=== PATIENT | male | born 1985 | race Hispanic/Latino ===

== ENCOUNTER 2019-10-03 18:30 | Inpatient (IN) | payer SELFPAY ==
[~2019-10-03 18:30] MED LIST: Iopamidol-370 76% 500 ML 1 ML ONE
[2019-10-03 19:02] LABS: Hemoglobin 15.9 g/dL (14.0-18.0); Mean Corpuscular HGB CONC 35.4 g/dL (32.0-36.0); Mean Corpuscular Hemoglobin 31.9 pg (27.0-31.0); Mean Platelet Volume 6.7 fL (7.4-10.4); Platelet Count 195 thou/uL (130-400); RBC Distribution Width 12.7 % (11.5-14.5); Red Blood Cell (RBC) Count 4.98 mill/uL (4.70-6.10); White Blood Cell (WBC) Count 16.1 thou/uL (4.8-10.8)
[2019-10-03] MEDS ORDERED: Piperacillin/Tazobactam 4.5 GM VIAL ONE (19:13)
[2019-10-03] MEDS ORDERED: Morphine 4 MG/ML VIAL ONE (19:13)
[2019-10-03] MEDS ORDERED: Sodium Chloride 0.9% 100 ML ONE (19:13)
[2019-10-03] MEDS ORDERED: Ondansetron PF 4 MG/2 ML Vial ONE (19:13)
[2019-10-03 19:25] LABS: Band 11 % (5-11); Lymphocytes 8 % (21-51); MDiff Complete? YES; Monocytes 4 % (0-10); Neutrophil 73 % (42-75); Platelet Morphology Comment Appears Adequate; Polychromasia SLIGHT = 2-3 cells (100X) (0-2/hpf); Reactive Lymphocytes 3 % (0-10); Tear Drops SLIGHT = 2-5 cells (100X) (0-1/hpf)
[2019-10-03 20:11] LABS: Albumin 3.6 g/dL (3.5-5.0)
[2019-10-03 20:12] LABS: Chloride 107 mmol/L (98-107); Sodium 134 mmol/L (136-145)
[2019-10-03 20:13] LABS: Calcium 7.7 mg/dL (7.8-10.44); Glucose 115 mg/dL (70-105)
[2019-10-03 20:14] LABS: Globulin 2.4 g/dL (2.4-3.5)
[2019-10-03 20:15] LABS: Anion Gap 11 mmol/L (10-20); Bilirubin, Total 0.8 mg/dL (0.2-1.2); Carbon Dioxide 19 mmol/L (22-29)
[2019-10-03 20:16] LABS: Alkaline Phosphatase 48 U/L (40-110)
[2019-10-03 20:17] LABS: Calc. Creatinine Clearance 0 mL/min (70-130); Estimated GFR-MDRD Greater than 90
[2019-10-03 20:18] LABS: AST (SGOT) 22 U/L (5-34); BUN (Urea Nitrogen) 9 mg/dL (8.9-20.6)
[2019-10-03] MEDS ORDERED: Clindamycin/D5W 900 mg/50 ml Premix Bag ONE (20:18)
[2019-10-03 20:19] LABS: ALT (SGPT) 37 U/L (8-55); CK (CPK) 86 U/L (30-200)
--- NOTE | 2019-10-03 20:24 | CT ---
CT SCAN OF THE RIGHT LOWER EXTREMITY WITH IV CONTRAST: 10/03/19 HISTORY: Right lower leg swelling, redness, pain. Concern for necrotizing fasciitis. FINDINGS: There is soft tissue edema in the medial aspect of the right lower leg extending into the ankle. No d efinite abnormally loculated fluid collection is seen to suggest abscess formation. The bony structur es are intact. No soft tissue air is seen. IMPRESSION: Findings are consistent with right leg cellulitis. No evidence of osteomyelitis or definite abscess formation. POS: FESTUS
[2019-10-03] MEDS ORDERED: Senokot S 8.6-50 MG TAB PO PRN (22:07)
[2019-10-03] MEDS ORDERED: Acetaminophen 325 MG TAB PO PRN (22:07)
[2019-10-03 23:42] VITALS: BMI 33.7
[2019-10-04] MEDS ORDERED: Potassium Chloride 20 MEQ TAB PO SCH (00:45)
--- NOTE | 2019-10-04 01:31 | HP ---
PRIMARY CARE PHYSICIAN: None. CHIEF COMPLAINT: Right leg pain. HISTORY OF PRESENT ILLNESS: Mr. Estrada is a 34-year-old man who reported to the emergency room today after complaining of right lower leg pain, swelling, and redness x1 day. Reports that he noticed a little red spot yesterday. Reports that he got out of [facility] yesterday. Reports that he had cellulitis in the same leg in the same area several weeks ago, was given antibiotics in [facility]. He said he had several doses of IV antibiotics and then p.o. He finished that course and symptoms resolved. He reports he was sitting cross-legged yesterday, waiting to get discharged from [facility] when he had a pain in his right groin and then reports that he later noticed a little bit a red spot in the same location as he had the previous cellulitis. He does report fever, chills, and body aches. He was found in the emergency room to have a white blood cell count of 16.1; sodium 134, potassium 3.0, carbon dioxide 19, creatinine 0.76, glucose 115, calcium 7.7; lactic acid 1.1; C-reactive protein 22.61. The patient also underwent a CT of the lower extremity, which showed consistent findings with right leg cellulitis. No evidence of osteomyelitis or definite abscess formation. ED was concerned about necrotizing fasciitis, so Dr. Watson of General Surgery was consulted from the emergency room. Reports that he would prefer admission to Medicine and that he would consult. He was given a dose of clindamycin, vancomycin, and Zosyn in the emergency room as well as some morphine and 2 L of normal saline and then admitted to the surgical unit for further management. REVIEW OF SYSTEMS: Reports chills, fever, and body aches. Reports lower right leg swelling, redness, pain, and warmth. All other systems are reviewed and are negative unless mentioned in the HPI. PAST MEDICAL HISTORY: Pertinent for hypertension and exposure to TB, reports that he is on month 8 out of 9 months regimen for exposure to TB. PAST SURGICAL HISTORY: None. PSYCHIATRIC HISTORY: None. SOCIAL HISTORY: He is a former tobacco user. ALLERGIES: NONE. CURRENT MEDICATIONS: Lisinopril 20 mg p.o. once a day, also takes TB prophylaxis regimen and he is reports that he has it at home. He was asked to have someone bring those medication list for us. PHYSICAL EXAMINATION: VITAL SIGNS: Blood pressure 114/81, pulse is 85, respirations 24, pO2 sats are 97% on room air, temp is 99.7. CONSTITUTIONAL: The patient appears nontoxic, is alert and oriented to person, place, and time. HEENT: Head is atraumatic and normocephalic. Eyes; eyelids are normal to inspection. Pupils are equal, round, and reactive to light. ENT; mouth exam is normal. Mucous membranes are moist. NECK: Normal range of motion. Trachea is midline. RESPIRATORY/CHEST: Breath sounds are clear. Chest expansion is equal. CARDIOVASCULAR: Heart rate tachycardic. Heart sounds are normal. ABDOMEN: Nontender. Bowel sounds are heard BACK: Normal range of motion. No tenderness. EXTREMITIES: Upper extremity; normal range of motion. Motor strength is normal. Sensation intact. Radial pulses are normal. Lower extremity; large area of erythema with central 4 x 4 area of purpura. Multiple surrounding petechiae lesions in the anterior right lower leg. Streaking erythema to the medial right lower leg. Motor strength is normal. Sensation intact. Pedal pulses are normal. NEURO: Patient is oriented to person, place, and time. Speech is normal. SKIN: Warm, dry, normal in color other than area as described in the lower extremity. PSYCHIATRIC: He has a normal affect. PLAN AND ASSESSMENT: 1. Right lower leg cellulitis with concern for necrotizing fasciitis. Dr. Watson was consulted from the emergency room. We have added a consult for him on the floor. Antibiotics were started in the emergency room. We have continued the Zosyn and the vancomycin. We will recheck labs in a.m. IV hydration, normal saline at 75 mL per hour, 2 L were given in the emergency room. We will ask PT to evaluate. 2. Hypokalemia, reported potassium chloride 40 x1 today and in a.m. We will recheck his potassium level in the morning. 3. History of hypertension. We will restart the lisinopril. 4. Deep vein thrombosis and gastrointestinal prophylaxis started. 5. Hospital course dependent on clinical findings. Job ID: [id number]
[2019-10-04] MEDS: Sodium Chloride 0.9% 1,000 ML IV SCH ×2 (01:35→17:36)
[2019-10-04] MEDS: Piperacillin/Tazobactam 4.5 GM in Sodium Chloride 0.9% 100 ML IVPB SCH ×3 (01:41→17:31)
[2019-10-04] MEDS: Vancomycin 1.5 GRAM/300 ML BAG 1.5 GM in Premix Bag 1 BAG IVPB SCH ×5 (02:00→18:19)
[2019-10-04 05:39] LABS: #Eosinphils 0.1 thou/uL (0.0-0.7); #Lymphocytes 1.7 thou/uL (1.20-3.40); #Monocytes 1.1 thou/uL (0.11-0.59); #Neutrophils 5.5 thou/uL (1.40-6.50); %Basophils 0.6 % (0.0-1.0); %Eosinophils 1.1 % (0.0-10.0); %Lymphocytes 20.3 % (21.0-51.0); %Monocytes 12.8 % (0.0-10.0); %Neutrophils 65.2 % (42.0-75.0); Hemoglobin 13.7 g/dL (14.0-18.0); Mean Corpuscular Hemoglobin 32.1 pg (27.0-31.0); Mean Corpuscular Volume 91.9 fL (78.0-98.0); Mean Platelet Volume 5.9 fL (7.4-10.4); Platelet Count 155 thou/uL (130-400); RBC Distribution Width 12.8 % (11.5-14.5); Red Blood Cell (RBC) Count 4.28 mill/uL (4.70-6.10); White Blood Cell (WBC) Count 8.5 thou/uL (4.8-10.8)
[2019-10-04 06:06] LABS: ALT (SGPT) 38 U/L (8-55); AST (SGOT) 21 U/L (5-34); Albumin 3.7 g/dL (3.5-5.0); Alkaline Phosphatase 50 U/L (40-110); Anion Gap 10 mmol/L (10-20); BUN (Urea Nitrogen) 10 mg/dL (8.9-20.6); Bilirubin, Total 0.7 mg/dL (0.2-1.2); Calc. Creatinine Clearance 169 mL/min (70-130); Calcium 8.3 mg/dL (7.8-10.44); Carbon Dioxide 26 mmol/L (22-29); Chloride 109 mmol/L (98-107); Estimated GFR-MDRD Greater than 90; Globulin 2.6 g/dL (2.4-3.5); Glucose 97 mg/dL (70-105); Potassium 3.7 mmol/L (3.5-5.1); Protein, Total 6.3 g/dL (6.0-8.3); Sodium 141 mmol/L (136-145)
[2019-10-04] MEDS: Potassium Chloride 20 MEQ TAB PO SCH (09:38)
[2019-10-04] MEDS: Enoxaparin Sodium 40 MG/0.4 ML SYRINGE SC SCH (09:38)
[2019-10-04] MEDS: Famotidine 20 MG TAB PO SCH ×2 (09:39→21:17)
--- NOTE | 2019-10-04 14:32 | PDOC.HOSPP ---
- Subjective Encounter Date: 10/04/19 Encounter Time: 10:45 Subjective: pt up in bed still has pain to his right leg. pt states that he recently got out of [facility] and had pain to his right groin on and on sunday noticed erythema to his right [place]. this will be his 3rd infection on his right leg. He also has had 2 more infection in his left [place]. He has never had any trauma or surgery. He does not recall any bits or boils or open sores. will continue iv abx, will get id to see pt. No need for surgical intervention since no abscess. - Objective Vital Signs & Weight: Vital Signs (12 hours) Temp Pulse Resp BP Pulse Ox 10/04/19 11:14 98.6 F 64 16 104/71 96 10/04/19 08:30 97 10/04/19 08:23 97.8 F 55 L 16 105/71 97 10/04/19 04:00 97.7 F 71 18 103/69 97 Weight Weight 228 lb 11.2 oz I&O: 10/03/19 10/04/19 10/05/19 06:59 06:59 06:59 Intake Total 1060 Balance 1060 Result Diagrams: 10/04/19 05:28 10/04/19 05:28 Hospitalist ROS - Review of Systems Respiratory: denies: cough, dry, shortness of breath, hemoptysis, SOB with excertion, pleuritic pain, sputum, wheezing, other Cardiovascular: denies: chest pain, palpitations, orthopnea, paroxysmal noc. dyspnea, edema, light headedness, other Gastrointestinal: denies: nausea, vomiting, abdominal pain, diarrhea, constipation, melena, hematochezia, other - Medication Medications: Active Medications Generic Name Dose Route Start Last Admin Trade Name Freq PRN Reason Stop Dose Admin Enoxaparin Sodium 40 mg 10/04/19 09:00 10/04/19 09:38 Lovenox SC 40 mg 0900 GERBER Administration Famotidine 20 mg 10/04/19 09:00 10/04/19 09:39 Pepcid PO 20 mg BID GERBER Administration Piperacillin Sod/Tazobactam 100 mls @ 200 mls/hr 10/04/19 02:00 10/04/19 09: 39 Sod 4.5 gm/ Sodium Chloride IVPB 100 mls 0200,1000,1800 GERBER Administration Vancomycin 1.5 GRAM/300 ML BAG 300 mls @ 200 mls/hr 10/03/19 02:00 10/04/19 10:51 1.5 gm/ Device IVPB 300 mls 0200,1000,1800 GERBER Administration Sodium Chloride 1,000 mls @ 75 mls/hr 10/04/19 00:45 10/04/19 01:35 Normal Saline 0.9% IV 1,000 mls .[id number] GERBER Administration Potassium Chloride 40 meq 10/04/19 08:00 10/04/19 09:38 K-Dur PO 40 meq QAM-WM GERBER Administration - Exam Respiratory: negative: CTAB, no wheezes, no rales, no ronchi, normal chest expansion, no tachypnea, normal percussion, rales, rhonchi, tachypneic, wheezes Gastrointestinal: negative: soft, non-tender, non-distended, normal bowel sounds , no palpable masses, no hepatomegaly, no splenomegaly, no bruit, no guarding, no rigidity, tender to palpation, distended, diminished bowl sounds, voluntary guarding Extremities: negative: no cyanosis, no clubbing, no edema, 1+ LE edema, 2+ LE edema, clubbing Skin: negative: normal turgor, no lesions, no rashes, tenting Skin - other findings: erythema noted to right [place] area Neurological: negative: cranial nerve grossly intact, normal sensation to touch , no weakness, no focal deficits, no new deficit, facial droop, hemiplegia, speech deficit, vision deficit Hosp A/P (1) Cellulitis Code(s): L03.90 - CELLULITIS, UNSPECIFIED Status: Acute (2) Obesity Code(s): E66.9 - OBESITY, UNSPECIFIED Status: Acute (3) HTN (hypertension) Code(s): I10 - ESSENTIAL (PRIMARY) HYPERTENSION Status: Acute - Plan will continue abx for now. id consulted. will continue bp meds
[2019-10-04 17:26] LABS: Vancomycin, Trough 15.9 ug/mL
[2019-10-04] MEDS ORDERED: FLU VACC QS2019-20(6MOS UP)/PF 60 MCG/0.5 ML SYRINGE IM ONE (21:00)
[2019-10-05] MEDS: Vancomycin 1.5 GRAM/300 ML BAG 1.5 GM in Premix Bag 1 BAG IVPB SCH ×2 (02:29→10:24)
[2019-10-05] MEDS: Piperacillin/Tazobactam 4.5 GM in Sodium Chloride 0.9% 100 ML IVPB SCH ×2 (04:05→10:23)
[2019-10-05] MEDS: Sodium Chloride 0.9% 1,000 ML IV SCH (04:08)
[2019-10-05] MEDS: Famotidine 20 MG TAB PO SCH ×2 (08:48→20:20)
[2019-10-05] MEDS: Potassium Chloride 20 MEQ TAB PO SCH (08:48)
[2019-10-05] MEDS: Enoxaparin Sodium 40 MG/0.4 ML SYRINGE SC SCH (08:49)
--- NOTE | 2019-10-05 11:25 | PDOC.HOSPP ---
- Subjective Encounter Date: 10/05/19 Encounter Time: 11:15 Subjective: pt up in bed and feels his pain has improved - Objective Vital Signs & Weight: Vital Signs (12 hours) Temp Pulse Resp BP Pulse Ox 10/05/19 08:30 96 10/05/19 08:00 98.5 F 91 16 111/75 96 10/05/19 04:02 98.3 F 97 16 114/73 97 10/04/19 23:46 98.6 F 79 16 117/77 95 Weight Weight 228 lb 11.2 oz I&O: 10/04/19 10/05/19 10/06/19 06:59 06:59 06:59 Intake Total 1060 1700 Output Total 350 Balance 1060 1350 Result Diagrams: 10/04/19 05:28 10/04/19 05:28 Hospitalist ROS - Review of Systems Cardiovascular: denies: chest pain, palpitations, orthopnea, paroxysmal noc. dyspnea, edema, light headedness, other Gastrointestinal: denies: nausea, vomiting, abdominal pain, diarrhea, constipation, melena, hematochezia, other Genitourinary: denies: dysuria, frequency, incontinence, hematuria, retention, other - Medication Medications: Active Medications Generic Name Dose Route Start Last Admin Trade Name Freq PRN Reason Stop Dose Admin Enoxaparin Sodium 40 mg 10/04/19 09:00 10/05/19 08:49 Lovenox SC 40 mg 0900 GERBER Administration Famotidine 20 mg 10/04/19 09:00 10/05/19 08:48 Pepcid PO 20 mg BID GERBER Administration Piperacillin Sod/Tazobactam 100 mls @ 200 mls/hr 10/04/19 02:00 10/05/19 10: 23 Sod 4.5 gm/ Sodium Chloride IVPB 100 mls 0200,1000,1800 GERBER Administration Vancomycin 1.5 GRAM/300 ML BAG 300 mls @ 200 mls/hr 10/03/19 02:00 10/05/19 10:24 1.5 gm/ Device IVPB 300 mls 0200,1000,1800 GERBER Administration Potassium Chloride 40 meq 10/04/19 08:00 10/05/19 08:48 K-Dur PO 40 meq QAM-WM GERBER Administration Sodium Chloride 10 ml 10/03/19 22:07 10/05/19 10:24 Flush - Normal Saline IVF 10 ml PRN PRN Administration Saline Flush - Exam Neck: negative: supple, symmetric, no JVD, no thyromegaly, no lymphadenopathy, no carotid bruit, JVD Heart: negative: RRR, no murmur, no gallops, no rubs, normal peripheral pulses, irregular, diminshed peripheral pulses, murmur present, II/IV, III/IV Respiratory: negative: CTAB, no wheezes, no rales, no ronchi, normal chest expansion, no tachypnea, normal percussion, rales, rhonchi, tachypneic, wheezes Extremities - other findings: mild erythema to right [place], improved from yestarday Hosp A/P (1) Cellulitis Code(s): L03.90 - CELLULITIS, UNSPECIFIED Status: Acute (2) Obesity Code(s): E66.9 - OBESITY, UNSPECIFIED Status: Acute (3) HTN (hypertension) Code(s): I10 - ESSENTIAL (PRIMARY) HYPERTENSION Status: Acute - Plan will continue abx for now. id consulted. will continue bp meds 10/05 will continue abx for now. pt has been having recurrent cellulites. ID consulted
--- NOTE | 2019-10-05 16:13 | CON ---
DATE OF CONSULTATION: 10/05/2019 REASON FOR CONSULTATION: Right lower extremity cellulitis. HISTORY OF PRESENT ILLNESS: A 34-year-old patient with history of obesity, hypertension, and prior exposure to tuberculosis with latent TB already treated and recurrent episodes of cellulitis in the right and left lower extremities. The patient has had counting this one total of 5 episodes over the past 17 months. He was incarcerated at [facility] and just got out of nursing home. He developed this inflammatory process now. He was admitted and started on IV antimicrobial therapy. He is feeling a little better, still quite a bit of tenderness in the distal aspect of the right leg. No headaches, visual symptoms, sore throat, odynophagia, or dysphagia. No dyspnea, cough, sputum production, or chest pain. No back pain. No abdominal pain or diarrhea. No genitourinary symptoms. No joint symptoms. No neurological symptoms. PAST MEDICAL HISTORY: Hypertension; latent tuberculosis, already treated; recurrent cellulitis in the lower extremities. PAST SURGICAL HISTORY: Negative. SOCIAL HISTORY: Current smoker. Recently released from [facility], stayed for about 17 months, currently on parole. ALLERGIES: NONE. CURRENT MEDICATIONS: 1. Tylenol. 2. Lovenox. 3. Pepcid. 4. Zosyn. 5. Vancomycin. PHYSICAL EXAMINATION: VITAL SIGNS: Essentially normal, mild elevation of systolic blood pressure. SKIN: With area of confluent erythema in the medial aspect of the right distal leg with tenderness. No blistering or necrosis noted. The patient has right groin lymphadenopathy/lymphadenitis. HEENT: Normal. NECK: Supple. LUNGS: Symmetric, clear breath sounds. HEART: S1 and S2, regular rate. No S3 or S4. ABDOMEN: Soft, not distended or tender. No ascites. No bladder distention. EXTREMITIES: No joint inflammatory activity. Pulses are 1+ in dorsalis pedis. 1+ pedal edema in lower extremities. Moves extremities equally except for limitations from inflammatory process, right leg. Cognitive function appears to be intact. LABORATORY DATA: White cell count 16,000 down to 8.5, hemoglobin 13.7, platelets 155, and 65% neutrophils. Sodium 134, creatinine 0.76, and calcium 7.7. Liver profile normal. CRP 22, albumin 3.6. Vancomycin trough 15.9. Microbiology with negative blood cultures x2 sets. There is a CT of lower extremities, which show consistent cellulitis. ASSESSMENT: Recurrent cellulitis, right and left leg. At this time, the episode is circumscribed to the right lower distal leg and elements of venous insufficiency. DISCUSSION: The patient will be transitioned to IV Rocephin and then eventual discharge on Keflex for another few days anywhere from 7 to 10 days and then penicillin VK 250 mg twice daily for 12 months plus compression stockings. The most likely risk factor here is venous insufficiency, obesity. The recent stay at [facility] did not help, but he will continue to be at risk for recurrences in the future. Job ID: [id number]
[2019-10-05] MEDS: cefTRIAXone\\ROCEPHIN 1 GM in Sodium Chloride 0.9% 100 ML IVPB SCH (16:39)
[2019-10-05 16:56] LABS: HIV (1/2) Antibody/Antigen Non-Reactive (NonReactive); HIV 1/2 INDEX 0.09 S/CO (<1.00); Hep C IgG Ab Non-Reactive (NonReactive); Hep C Index 0.23 S/CO (0-0.79)
[2019-10-05 17:44] LABS: Syphilis Antibody Index 2.35 S/CO (<1.00 Non-Reactive)
[2019-10-06 06:01] LABS: Syphilis Antibody INDETERMINATE (Nonreactive)
[2019-10-06] MEDS: Potassium Chloride 20 MEQ TAB PO SCH (08:26)
[2019-10-06] MEDS: Enoxaparin Sodium 40 MG/0.4 ML SYRINGE SC SCH (08:26)
[2019-10-06] MEDS: Famotidine 20 MG TAB PO SCH ×2 (08:26→20:58)
--- NOTE | 2019-10-06 11:29 | PDOC.HOSPP ---
- Subjective Encounter Date: 10/06/19 Encounter Time: 11:27 Subjective: no fever, pain - Objective Vital Signs & Weight: Vital Signs (12 hours) Temp Pulse Resp BP Pulse Ox 10/06/19 07:37 98.5 F 92 14 130/82 93 L 10/06/19 04:13 98.2 F 86 16 117/79 96 10/06/19 00:10 98.6 F 94 16 123/80 96 Weight Weight 228 lb 11.2 oz I&O: 10/05/19 10/06/19 10/07/19 06:59 06:59 06:59 Intake Total 1700 480 Output Total 350 350 Balance 1350 130 Result Diagrams: 10/04/19 05:28 10/04/19 05:28 Hospitalist ROS - Medication Medications: Active Medications Generic Name Dose Route Start Last Admin Trade Name Freq PRN Reason Stop Dose Admin Acetaminophen 650 mg 10/03/19 22:07 10/05/19 20:45 Tylenol PO 650 mg Q4H PRN Administration Headache/Fever/Mild Pain (1-3) Enoxaparin Sodium 40 mg 10/04/19 09:00 10/06/19 08:26 Lovenox SC 40 mg 0900 GERBER Administration Famotidine 20 mg 10/04/19 09:00 10/06/19 08:26 Pepcid PO 20 mg BID GERBER Administration Ceftriaxone Sodium 1 gm/ 100 mls @ 200 mls/hr 10/05/19 16:00 10/05/19 16:39 Sodium Chloride IVPB 100 mls 1600 GERBER Administration Potassium Chloride 40 meq 10/04/19 08:00 10/06/19 08:26 K-Dur PO 40 meq QAM-WM GERBER Administration Sodium Chloride 10 ml 10/03/19 22:07 10/05/19 10:24 Flush - Normal Saline IVF 10 ml PRN PRN Administration Saline Flush - Exam General Appearance: awake alert Neck: no JVD Heart: RRR, no murmur Respiratory: CTAB Gastrointestinal: soft, normal bowel sounds Extremities: no edema Skin - other findings: decreased erythema and tenderness RLE Hosp A/P (1) Cellulitis Code(s): L03.90 - CELLULITIS, UNSPECIFIED Status: Acute Qualifiers: Site of cellulitis of extremity: lower extremity Laterality: right (2) HTN (hypertension) Code(s): I10 - ESSENTIAL (PRIMARY) HYPERTENSION Status: Chronic Qualifiers: Hypertension type: essential hypertension Qualified Code(s): I10 - Essential (primary) hypertension - Plan cont iv antibx x 24hrs, then DC on po cephalexin
[2019-10-06] MEDS ORDERED: Isoniazid 100 MG TAB PO SCH ×3 (13:02→16:00)
[2019-10-06] MEDS: cefTRIAXone\\ROCEPHIN 1 GM in Sodium Chloride 0.9% 100 ML IVPB SCH (15:49)
[2019-10-07 07:34] VITALS: BP 119/78; TEMP 98.3
[2019-10-07] MEDS: Famotidine 20 MG TAB PO SCH (07:58)
[2019-10-07] MEDS: Potassium Chloride 20 MEQ TAB PO SCH (07:58)
[2019-10-07] MEDS: Enoxaparin Sodium 40 MG/0.4 ML SYRINGE SC SCH (07:59)
--- NOTE | 2019-10-07 10:47 | DIS ---
DATE OF ADMISSION: 10/03/2019 DATE OF DISCHARGE: 10/07/2019 REASON FOR ADMISSION: [facility] admission for Cathie. DISPOSITION: Discharged home. FINAL DIAGNOSES: Cellulitis of right lower extremity, hypertension, on isoniazid for TB conversion. ALLERGIES: NONE. DIET: Heart healthy. PENDING AT THE TIME OF DISCHARGE: Nothing. HOSPITAL COURSE: The patient was [facility] to [facility] with acute cellulitis of the right lower extremity. White count 16.1, hemoglobin 15.9, platelet count 195,000. White count dropped down to 8.5 after 1 day of IV antibiotics. The patient was placed on Zosyn and vancomycin in the emergency room. Cultures of the blood were negative. Dr. Bae saw in consultation, suggested transition to cephalexin for 10 days, then on penicillin VK 250 twice a day for 12 months. The patient has done well during his hospital stay. He is afebrile. Erythema/swelling has gone down in his right lower extremity. He has had no procedures. He is being discharged. He is to see Dr. Bae in followup in 1 week, who will then prescribe his penicillin VK for the next year. Job ID: [id number]
--- NOTE | 2019-10-09 07:58 | PQF ---
Maco Estrada KARISHMA [id number] CLINICAL DOCUMENTATION CLARIFICATION FORM: POST DISCHARGE Addendum to original discharge summary date: ____ Late entry note date: __ DATE: 10/09/2019 ATTN: SRIKANTH BOCANEGRA Please exercise your independent, professional judgment in responding to the clarification form. Clinical indicators are provided on the bottom of this form for your review Please check appropriate box(s) to clarify if the following diagnosis has been ruled in or ruled out: Sepsis [ X ] Ruled in diagnosis [ X] Continue to treat [ ] Resolved [ ] Ruled out diagnosis [ ] Cannot rule out diagnosis [ ] Other diagnosis [ ] Unable to determine For continuity of documentation, please document condition throughout progress notes and discharge summary. Thank You. CLINICAL INDICATORS - SIGNS / SYMPTOMS / LABS -Sepsis, Right lower leg cellulitis- ED record, 10/03, Keeley Orellana DO -Temp: 102.0, Pulse:tachycardia- ED record, 10/03, Keeley Orellana DO -WBC: 16.1H-ED record, 10/03, Keeley Orellana DO RISK FACTORS - Right lower leg cellulitis with concern for necrotizing fascitis-H&P, 10/04, Aurelio Ruiz [employer] -Vancomycin.IV- MAR, 10/03 (This form is maintained as a part of the permanent medical record) 2014 [employer] All Rights Reserved Ann Marie Rodriguez [not provided] [not provided] BIJU
[2019-10-09] MEDS ORDERED: ISONIAZID PO SCH (16:00)
== END 2019-10-07 11:15 | disposition home or self-care (01) | DRG 872 ==
LOC: ERS 18:30 → SJJU 22:18
PROVIDERS: ADMIT Internal Medicine; ATTEND Internal Medicine
DX: A41.9 Sepsis, unspecified organism (principal); L03.115 Cellulitis of right lower limb; I10 Essential (primary) hypertension; F12.10 Cannabis abuse, uncomplicated; F17.210 Nicotine dependence, cigarettes, uncomplicated; E87.6 Hypokalemia; E66.9 Obesity, unspecified; Z68.33 Body mass index [BMI] 33.0-33.9, adult
CPT/HCPCS: 36415; 80053; 80202; 82550; 83605; 85025; 85652; 86140; 86593; 86780; 86803; 87040; 87389; 90471; 90686; 90732; 96365; 96367; 96375; G0008; G0009; J0696; J1650; J2270; J2405; J2543; J3370; J3490; Q9967